=== PATIENT | male | born 1975 | race African-American/Black ===

== ENCOUNTER 2018-05-09 11:41 | Inpatient (IN) ==
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
[2018-05-09 13:11] LABS: Baso % (Auto) 0.7 % (0.0-2.0); Eos # (Auto) 0.3 th/mm3 (0.0-0.4); Eos % (Auto) 4.8 % (0.0-4.0); Hematocrit 43.3 % (39.0-51.0); Hemoglobin 14.3 gm/dL (13.0-17.0); Lymph # (Auto) 2.2 th/mm3 (1.0-4.8); Lymph % (Auto) 39.3 % (9.0-44.0); Mean Corpuscular HGB Conc 33.1 % (32.0-36.0); Mean Corpuscular Hemoglobin 31.5 pg (27.0-34.0); Mean Corpuscular Volume 95.2 fL (80.0-100.0); Mean Platelet Volume 8.1 fL (7.0-11.0); Mono # (Auto) 0.4 th/mm3 (0.0-0.9); Mono % (Auto) 6.9 % (0.0-8.0); Neut # (Auto) 2.6 th/mm3 (1.8-7.7); Neut % (Auto) 48.3 % (16.0-70.0); Platelet Count 275 th/mm3 (150-450); Red Blood Count 4.54 mil/mm3 (4.50-5.90); Red Cell Distribution Width 12.5 % (11.6-17.2); White Blood Count 5.5 th/mm3 (4.0-11.0)
[2018-05-09 13:16] LABS: Anion Gap 4 meq/L (5-15); Blood Urea Nitrogen 6 mg/dL (7-18); Calcium 8.9 mg/dL (8.5-10.1); Carbon Dioxide 31.1 meq/L (21.0-32.0); Chloride 106 meq/L (98-107); Glomerular Filtration Rate Greater Than 89 mL/min (>89); Glucose,Random 87 mg/dL (74-106); Potassium 3.9 meq/L (3.5-5.1); Sodium 141 meq/L (136-145)
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
[2018-05-09] MEDS ORDERED: Bisacodyl 10 MG Supp RECTAL PRN (14:29)
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
[2018-05-09 15:09] LABS: Activated Partial Thrombo Time 27.5 sec (23.4-31.7)
[2018-05-09 15:11] LABS: Prothrombin Time 10.1 sec (9.8-11.6)
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
--- NOTE | 2018-05-09 16:58 | MR ---
EXAM DATE: 05/09/2018 4:45 PM EST AGE/SEX: 43 years / Male INDICATIONS: . Assess vertebral arteries, possible cervical fracture. CLINICAL DATA: This is the patient's initial encounter. Patient reports that signs and symptoms have been present for 2 months and indicates a pain score of 3/10. MEDICAL/SURGICAL HISTORY: None. . Left hand sx. COMPARISON: C, CTA NECK W CONTRAST W 3D, 03/31/2018. . TECHNIQUE: 3D time-of- flight MRA of the extracranial circulation was performed using a neuro6sicuro.itcul ar coil. Post processing was performed including rotating sub-volume maximum intensity projections o f each carotid artery, rotating full-volume maximum intensity projections of both carotid arteries, s agittal and coronal sliding thin-slab reformations of each carotid artery, and left oblique sliding t hin-slab reformation through the aortic arch to include the origin of the arch branch vessels. FINDINGS: Aortic Arch : There is a three-vessel origin of the great vessels from the aorta. No evidence of o stial narrowing. Right Carotid : The common carotid artery is intact. The carotid bulb has a normal configuration wi thout ulceration or narrowing. The internal carotid artery lumen is smooth without stenosis. The ex ternal carotid artery is intact. Left Carotid : The common carotid artery is intact. The carotid bulb has a normal configuration wit hout ulceration or narrowing. The internal carotid artery lumen is smooth without stenosis. The ext ernal carotid artery is intact. Vertebrals : As on the prior CTA examination, the left vertebral artery is not visualized, presumed occluded throughout. The right vertebral is a widely patent normal caliber normal-appearing vessel CONCLUSION: Left vertebral is occluded. Percent stenosis is calculated using the diameter of the stenotic region over the diameter of the nor mal distal internal carotid artery Electronically signed by: Matthew Torres MD Board Certified Radiologist 05/09/2018 4:57 PM EST
[2018-05-09] MEDS ORDERED: Chlorhexidine 4% Topical 120 APPLIC/120 ML Bottle TOPICAL ONE (20:00)
[2018-05-09] MEDS: Famotidine PF Inj 20 MG/2 ML Vial IV.PUSH SCH (20:20)
[2018-05-09] MEDS: Senna/Docusate Sodium 8.6/50 MG Tablet PO SCH (20:20)
[2018-05-10] MEDS ORDERED: Chlorhexidine Gluconate 2% 1 Pack (2 Cloths) TOPICAL PRN (04:00)
[2018-05-10 04:24] LABS: Anion Gap 8 meq/L (5-15); Blood Urea Nitrogen 8 mg/dL (7-18); Calcium 8.4 mg/dL (8.5-10.1); Carbon Dioxide 26.9 meq/L (21.0-32.0); Chloride 109 meq/L (98-107); Glomerular Filtration Rate Greater Than 89 mL/min (>89); Glucose,Random 95 mg/dL (74-106); Potassium 3.6 meq/L (3.5-5.1); Sodium 144 meq/L (136-145)
[2018-05-10] MEDS: Sod Chloride 0.9% Inj 1,000 ML IV.CONT SCH ×3 (06:25→18:23)
[2018-05-10] MEDS: Chlorhexidine Gluconate 2% 1 Pack (2 Cloths) TOPICAL SCH (06:25)
[2018-05-10] MEDS: Famotidine PF Inj 20 MG/2 ML Vial IV.PUSH SCH ×2 (08:24→20:40)
[2018-05-10] MEDS: Senna/Docusate Sodium 8.6/50 MG Tablet PO SCH ×2 (09:35→20:41)
[2018-05-10] MEDS ORDERED: Thrombin Topical Soln 5,000 UNIT Vial TOPICAL ONE (10:12)
[2018-05-10] MEDS ORDERED: Lidocaine 1%/Epinephrine 1:100,000 Inj 50 ML Vial ONE (10:12)
[2018-05-10] MEDS ORDERED: Gelatin Size 100 Topical Foam ONE (10:12)
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
[2018-05-10] MEDS ORDERED: Propofol Inj 500 MG/50 ML Vial ONE ×2 (10:38→13:18)
[2018-05-10] MEDS ORDERED: Normosol-R pH 7.4 Inj 2,000 ML IV.CONT ONE (10:51)
[2018-05-10] MEDS ORDERED: Succinylcholine Inj 100 MG/5 ML Syringe IV.PUSH ONE (10:51)
[2018-05-10] MEDS ORDERED: Sodium Chlor 0.9% Inj 250 ML IV.CONT ONE (10:51)
[2018-05-10] MEDS ORDERED: Neostigmine Inj 5 MG/5 ML Syringe IV.PUSH ONE (10:51)
[2018-05-10] MEDS ORDERED: Glycopyrrolate Inj 1 MG/5 ML Syringe IV.PUSH ONE (10:51)
[2018-05-10] MEDS ORDERED: Phenylephrine/NS 1000 MCG/10ML Syringe IV.PUSH ONE (10:51)
[2018-05-10] MEDS ORDERED: Lidocaine PF 1% Inj 5 ML Syringe OTHER ONE (10:51)
[2018-05-10] MEDS ORDERED: fentaNYL Citrate Inj 100 MCG/2 ML Ampul ONE (13:17)
[2018-05-10] MEDS ORDERED: Empty Container, Bottle 1 EACH, Sod Chloride 0.9% Inj 1,000 ML, Bacitracin Inj 50,000 UNIT IRRIGATION ONE ×3 (14:21)
[2018-05-10] MEDS ORDERED: ceFAZolin Inj 2 GM in Sodium Chlor 0.9% Inj 100 ML IV.SIG ONE (15:35)
--- NOTE | 2018-05-10 15:45 | XR ---
EXAM DATE: 05/10/2018 3:33 PM EST AGE/SEX: 43 years / Male INDICATIONS: C3-T1 Posterior Fusion. CLINICAL DATA: This is the patient's subsequent encounter. Patient reports that signs and symptoms h ave been present for 2 days and indicates a pain score of Nonresponsive. MEDICAL/SURGICAL HISTORY: Non-responsive. . C3-T1 Posterior Fusion. COMPARISON: No prior exams available for comparison. FINDINGS: Intraoperative OEC spot images show bilateral transpedicular fixation at 4 levels on the right and 3 levels on the left beginning at C3 and extending inferiorly. Hardware all appears to be intact. CONCLUSION: Bilateral transpedicular fixation of the cervical spine with 4 levels on the right and 3 levels on th e left beginning at C3 and extending inferiorly. Electronically signed by: Isaac Yeh MD Board Certified Radiologist 05/10/2018 3:44 PM EST
--- NOTE | 2018-05-10 16:12 | P.PCN ---
Date of procedure: 05/10/18 Pre-op diagnosis: left C4/5 jumped/perched facet with unstable fracture. Post-op diagnosis: same Procedure: C3/4,C4/5,C5/6 posterior cervical fusion with spinal instrumentation Microscope Neuro-monitoring [place] head sawyer automatic Anesthesia: GETA Surgeon: Taco Payan Estimated blood loss (mL): 100 Pathology: none sent Condition: stable Disposition: PACU (Extubated, awake, alert, following commands, moving all 4 extremities well. No change from his pre-operative state.)
[2018-05-10] MEDS ORDERED: *morphine SULFATE 4 MG/ML PERIprocedure ONLY ONE ×3 (16:53→17:42)
[2018-05-10 17:09] LABS: Baso % (Auto) 0.1 % (0.0-2.0); Eos % (Auto) 0.1 % (0.0-4.0); Hematocrit 38.2 % (39.0-51.0); Hemoglobin 12.8 gm/dL (13.0-17.0); Lymph # (Auto) 0.6 th/mm3 (1.0-4.8); Lymph % (Auto) 6.3 % (9.0-44.0); Mean Corpuscular HGB Conc 33.6 % (32.0-36.0); Mean Corpuscular Hemoglobin 31.5 pg (27.0-34.0); Mean Corpuscular Volume 93.6 fL (80.0-100.0); Mean Platelet Volume 7.5 fL (7.0-11.0); Mono # (Auto) 0.1 th/mm3 (0.0-0.9); Mono % (Auto) 0.5 % (0.0-8.0); Neut # (Auto) 9.1 th/mm3 (1.8-7.7); Platelet Count 251 th/mm3 (150-450); Red Blood Count 4.08 mil/mm3 (4.50-5.90); Red Cell Distribution Width 12.5 % (11.6-17.2); White Blood Count 9.8 th/mm3 (4.0-11.0)
[2018-05-10 17:52] LABS: Calcium 7.6 mg/dL (8.5-10.1); Carbon Dioxide 24.9 meq/L (21.0-32.0); Potassium 3.5 meq/L (3.5-5.1)
--- NOTE | 2018-05-10 18:47 | CT ---
EXAM DATE: 05/10/2018 6:31 PM EST AGE/SEX: 43 years / Male INDICATIONS: Post-op follow up. CLINICAL DATA: This is the patient's initial encounter. Patient reports that signs and symptoms have been present for 1 day and indicates a pain score of 7/10. MEDICAL/SURGICAL HISTORY: None. . C4/c5 fracture. Cervical surgery. RADIATION DOSE: 42.99 CTDI (mGy) COMPARISON: [facility] [place], CT CERVICAL SPINE W/O CONTRAST, 05/09/2018. . TECHNIQUE: Contiguous axial images were obtained using helical multirow detector technique. The vol umetric data was post-processed with multiplanar reconstruction in oblique axial, sagittal, and coron al planes. Using automated exposure control and adjustment of the mA and/or kV according to patient s ize, radiation dose was kept as low as reasonably achievable to obtain optimal diagnostic quality joseph ges. DICOM format image data is available electronically for review and comparison. FINDINGS: Vertebrae: Postsurgical changes with posterior fusion with rods and screws posteriorly C3-C6. Facets are well aligned. There is some slight widening of the anterior disc space at C4-5. There does appea r to be some hemorrhage within the spinal canal at C3, C4 and C5 levels. Surgical drain seen posterio rly. Alignment: Alignment near anatomic and significantly improved status post reduction/surgical changes . C2-3: The bony spinal canal is normal in size. No evidence of disc bulge or herniation. The neural foramina are bilaterally patent. C3-4: The bony spinal canal is normal in size. No evidence of disc bulge or herniation. The neural foramina are bilaterally patent. C4-5: The bony spinal canal is normal in size. No evidence of disc bulge or herniation. The neural foramina are bilaterally patent. C5-6: The bony spinal canal is normal in size. No evidence of disc bulge or herniation. The neural foramina are bilaterally patent. C6-7: The bony spinal canal is normal in size. No evidence of disc bulge or herniation. The neural foramina are bilaterally patent. C7-T1: The bony spinal canal is normal in size. No evidence of disc bulge or herniation. The neura l foramina are bilaterally patent. CONCLUSION: 1. Postsurgical changes with posterior fusion C3-C6. 2. Alignment is near anatomic. 3. There does appear to be some hemorrhage within the thecal sac at multiple levels as above. Electronically signed by: Michael Macias MD Board Certified Radiologist 05/10/2018 6:45 PM EST
[2018-05-10] MEDS: Morphine Sulfate Inj 2 MG/ML Vial IV.PUSH PRN ×3 (19:03→23:02)
--- NOTE | 2018-05-10 21:33 | ECG ---
Date Performed: 05/10/2018 Time Performed: 04:53:40 PTAGE: 43 years EKG: Sinus bradycardia. Normal ECG except for rate NO PREVIOUS TRACING DOCTOR: Julius Rocha Interpretating Date/Time 05/10/2018 21:32:46
[2018-05-10] MEDS: ceFAZolin Inj 1 GM in Sodium Chlor 0.9% Inj 100 ML IV.SIG SCH (23:04)
[2018-05-11] MEDS: Morphine Sulfate Inj 2 MG/ML Vial IV.PUSH PRN ×4 (03:30→14:43)
[2018-05-11] MEDS: Sod Chloride 0.9% Inj 1,000 ML IV.CONT SCH ×3 (05:35→23:41)
[2018-05-11] MEDS: Chlorhexidine Gluconate 2% 1 Pack (2 Cloths) TOPICAL SCH (05:36)
[2018-05-11 06:11] LABS: Baso % (Auto) 0.1 % (0.0-2.0); Hematocrit 37.7 % (39.0-51.0); Hemoglobin 12.8 gm/dL (13.0-17.0); Lymph # (Auto) 1.1 th/mm3 (1.0-4.8); Lymph % (Auto) 10.8 % (9.0-44.0); Mean Corpuscular Hemoglobin 31.5 pg (27.0-34.0); Mean Corpuscular Volume 92.5 fL (80.0-100.0); Mean Platelet Volume 8.1 fL (7.0-11.0); Mono # (Auto) 0.5 th/mm3 (0.0-0.9); Mono % (Auto) 4.3 % (0.0-8.0); Neut # (Auto) 8.9 th/mm3 (1.8-7.7); Neut % (Auto) 84.8 % (16.0-70.0); Platelet Count 263 th/mm3 (150-450); Red Blood Count 4.08 mil/mm3 (4.50-5.90); Red Cell Distribution Width 12.3 % (11.6-17.2); White Blood Count 10.5 th/mm3 (4.0-11.0)
[2018-05-11 06:51] LABS: Anion Gap 7 meq/L (5-15); Blood Urea Nitrogen 6 mg/dL (7-18); Calcium 8.6 mg/dL (8.5-10.1); Carbon Dioxide 27.6 meq/L (21.0-32.0); Chloride 105 meq/L (98-107); Glomerular Filtration Rate Greater Than 89 mL/min (>89); Glucose,Random 118 mg/dL (74-106); Potassium 4.2 meq/L (3.5-5.1); Sodium 140 meq/L (136-145)
[2018-05-11] MEDS: ceFAZolin Inj 1 GM in Sodium Chlor 0.9% Inj 100 ML IV.SIG SCH ×2 (09:41→15:07)
[2018-05-11] MEDS: Senna/Docusate Sodium 8.6/50 MG Tablet PO SCH ×2 (09:42→20:28)
[2018-05-11] MEDS: Famotidine PF Inj 20 MG/2 ML Vial IV.PUSH SCH ×2 (09:42→20:28)
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
[2018-05-11] MEDS: HYDROmorphone PF Inj 0.5 MG/0.5 ML Syringe IV.PUSH PRN ×3 (15:33→23:50)
[2018-05-12] MEDS: HYDROmorphone PF Inj 0.5 MG/0.5 ML Syringe IV.PUSH PRN ×4 (03:24→21:48)
[2018-05-12 03:41] LABS: Baso % (Auto) 0.3 % (0.0-2.0); Eos # (Auto) 0.1 th/mm3 (0.0-0.4); Eos % (Auto) 0.8 % (0.0-4.0); Hematocrit 33.6 % (39.0-51.0); Hemoglobin 11.4 gm/dL (13.0-17.0); Lymph # (Auto) 2.8 th/mm3 (1.0-4.8); Lymph % (Auto) 30.4 % (9.0-44.0); Mean Corpuscular HGB Conc 33.9 % (32.0-36.0); Mean Corpuscular Hemoglobin 32.1 pg (27.0-34.0); Mean Corpuscular Volume 94.7 fL (80.0-100.0); Mono # (Auto) 0.5 th/mm3 (0.0-0.9); Mono % (Auto) 5.6 % (0.0-8.0); Neut # (Auto) 5.8 th/mm3 (1.8-7.7); Neut % (Auto) 62.9 % (16.0-70.0); Platelet Count 221 th/mm3 (150-450); Red Blood Count 3.55 mil/mm3 (4.50-5.90); Red Cell Distribution Width 12.4 % (11.6-17.2); White Blood Count 9.2 th/mm3 (4.0-11.0)
[2018-05-12 04:02] LABS: Anion Gap 6 meq/L (5-15); Blood Urea Nitrogen 7 mg/dL (7-18); Calcium 7.4 mg/dL (8.5-10.1); Carbon Dioxide 30.4 meq/L (21.0-32.0); Chloride 107 meq/L (98-107); Glomerular Filtration Rate Greater Than 89 mL/min (>89); Glucose,Random 117 mg/dL (74-106); Potassium 3.5 meq/L (3.5-5.1); Sodium 143 meq/L (136-145)
[2018-05-12] MEDS: Chlorhexidine Gluconate 2% 1 Pack (2 Cloths) TOPICAL SCH (04:02)
[2018-05-12 04:09] LABS: Calcium-Albumin Corrected 8.2 mg/dL (8.5-10.1)
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
[2018-05-12] MEDS: Senna/Docusate Sodium 8.6/50 MG Tablet PO SCH ×2 (10:06→21:47)
[2018-05-12] MEDS: Famotidine PF Inj 20 MG/2 ML Vial IV.PUSH SCH ×2 (10:06→21:47)
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
[2018-05-13] MEDS: HYDROmorphone PF Inj 0.5 MG/0.5 ML Syringe IV.PUSH PRN ×5 (02:21→22:32)
[2018-05-13] MEDS: Chlorhexidine Gluconate 2% 1 Pack (2 Cloths) TOPICAL SCH (04:33)
[2018-05-13] MEDS: Famotidine PF Inj 20 MG/2 ML Vial IV.PUSH SCH ×2 (08:02→20:49)
[2018-05-13] MEDS: Senna/Docusate Sodium 8.6/50 MG Tablet PO SCH ×2 (08:03→20:49)
[2018-05-13 09:43] LABS: Baso % (Auto) 0.4 % (0.0-2.0); Eos # (Auto) 0.2 th/mm3 (0.0-0.4); Eos % (Auto) 2.3 % (0.0-4.0); Hematocrit 37.6 % (39.0-51.0); Hemoglobin 12.5 gm/dL (13.0-17.0); Lymph # (Auto) 2.8 th/mm3 (1.0-4.8); Mean Corpuscular HGB Conc 33.2 % (32.0-36.0); Mean Corpuscular Hemoglobin 31.2 pg (27.0-34.0); Mean Corpuscular Volume 94.1 fL (80.0-100.0); Mean Platelet Volume 7.9 fL (7.0-11.0); Mono # (Auto) 0.7 th/mm3 (0.0-0.9); Mono % (Auto) 7.2 % (0.0-8.0); Neut # (Auto) 5.6 th/mm3 (1.8-7.7); Neut % (Auto) 60.1 % (16.0-70.0); Platelet Count 233 th/mm3 (150-450); Red Cell Distribution Width 12.6 % (11.6-17.2); White Blood Count 9.3 th/mm3 (4.0-11.0)
[2018-05-13 10:06] LABS: Anion Gap 9 meq/L (5-15); Calcium 8.8 mg/dL (8.5-10.1); Carbon Dioxide 27.7 meq/L (21.0-32.0); Chloride 101 meq/L (98-107); Glomerular Filtration Rate Greater Than 89 mL/min (>89); Potassium 3.4 meq/L (3.5-5.1); Sodium 138 meq/L (136-145)
[2018-05-13 10:10] LABS: Blood Urea Nitrogen 6 mg/dL (7-18); Glucose,Random 85 mg/dL (74-106)
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
[2018-05-14] MEDS ORDERED: Acetaminophen 500 MG Tablet PO ONE (00:23)
[2018-05-14] MEDS: Chlorhexidine Gluconate 2% 1 Pack (2 Cloths) TOPICAL SCH (03:08)
[2018-05-14] MEDS: HYDROmorphone PF Inj 0.5 MG/0.5 ML Syringe IV.PUSH PRN ×4 (08:56→20:30)
[2018-05-14] MEDS: Famotidine PF Inj 20 MG/2 ML Vial IV.PUSH SCH ×2 (08:56→20:11)
[2018-05-14] MEDS: Senna/Docusate Sodium 8.6/50 MG Tablet PO SCH ×2 (11:52→20:09)
[2018-05-14] MEDS ORDERED: MethylPREDNISolone Sod Succinate Inj 125 MG/2 ML Vial IV.PUSH ONE (12:00)
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
[2018-05-14] MEDS ORDERED: Gadobutrol PF 10 MMOL/10 ML Vial (for RAD) IV.SIG ONE (19:06)
--- NOTE | 2018-05-14 19:42 | MR ---
EXAM DATE: 05/14/2018 7:28 PM EST AGE/SEX: 43 years / Male INDICATIONS: . Post surgical pain. CLINICAL DATA: This is the patient's initial encounter. Patient reports that signs and symptoms have been present for 4 - 6 days and indicates a pain score of 5/10. MEDICAL/SURGICAL HISTORY: None. Fusion, cervical. Left hand surgery. COMPARISON: [facility] – [place], MR CERVICAL SPINE W/O CONTRAST, 05/09/2018. . TECHNIQUE: Multiplanar, multisequence MRI examination of the cervical spine was performed without an d with 8 ml Gadavist (gadobutrol) contrast as a single exam dose. FINDINGS: ALIGNMENT: The traumatic anterolisthesis at the C4 level has been reduced. Vertebral bodies are now s atisfactorily aligned without evidence of listhesis. FACET AND OSSEOUS STRUCTURES: Postsurgical changes are identified following posterior fusion. The di slocated left-sided C4-5 facet has been reduced. Posterior parallel fusion rods are identified. There is a posterior suboccipital fluid collection along the posterior elements extending from the ba se of the skull to the C3 level. The collection does not extend into the spinal canal. Measures appro ximately 5 to 6 cm in length by 3 cm in width. INTERVERTEBRAL DISC SPACES: Disc space narrowing and mild signal alteration 7 C4-5 disc following tr auma. There is no significant disc herniation. Intervertebral disc spaces are otherwise well-maintained. NEUROLOGIC STRUCTURES: Localized spinal cord T2 hyperintensity remains evident at the C4-5 level. Spi nal cord superior and inferior to this area is otherwise unremarkable. There is no significant spinal cord expansion. CONCLUSION: 1. Posterior suboccipital postsurgical fluid collection extending from the base of the skull to C3. This is most characteristic of a postsurgical seroma or evolving hematoma. 2. Satisfactory reduction of traumatic listhesis and left-sided facet dislocation at C4-5. 3. Intramedullary T2 hyperintensity within the cervical spinal cord characteristic of traumatic inju ry and edema. No significant change is identified compared to the initial evaluation. 4. Otherwise stable bony and soft tissue structures. Electronically signed by: Jimbo Rebolledo MD Board Certified Radiologist 05/14/2018 7:41 PM EST
[2018-05-14 21:28] LABS: Bilirubin,Urine Negative (Negative); Clarity,Urine Clear (Clear); Color,Urine Yellow (Yellw/Straw); Glucose,Urine (UA) Negative (Negative); Leukocyte Esterase,Urine Negative (Negative); Mucus,Urine Few /lpf (Occasional); Nitrite,Urine Negative (Negative); Specific Gravity,Urine 1.016 (1.002-1.035)
[2018-05-15] MEDS: HYDROmorphone PF Inj 0.5 MG/0.5 ML Syringe IV.PUSH PRN ×3 (00:33→15:20)
[2018-05-15 06:18] LABS: Hematocrit 33.6 % (39.0-51.0); Hemoglobin 11.1 gm/dL (13.0-17.0); Mean Corpuscular Hemoglobin 30.5 pg (27.0-34.0); Mean Corpuscular Volume 92.6 fL (80.0-100.0); Mean Platelet Volume 8.1 fL (7.0-11.0); Platelet Count 272 th/mm3 (150-450); Red Blood Count 3.62 mil/mm3 (4.50-5.90); Red Cell Distribution Width 12.5 % (11.6-17.2)
[2018-05-15 06:48] LABS: Anion Gap 10 meq/L (5-15); Blood Urea Nitrogen 12 mg/dL (7-18); Calcium 9.1 mg/dL (8.5-10.1); Carbon Dioxide 29.3 meq/L (21.0-32.0); Chloride 100 meq/L (98-107); Glomerular Filtration Rate Greater Than 89 mL/min (>89); Glucose,Random 118 mg/dL (74-106); Potassium 3.7 meq/L (3.5-5.1); Sodium 139 meq/L (136-145)
[2018-05-15 09:03] LABS: Creatine Kinase 173 U/L (39-308)
[2018-05-15] MEDS: Senna/Docusate Sodium 8.6/50 MG Tablet PO SCH (09:18)
[2018-05-15] MEDS: Famotidine PF Inj 20 MG/2 ML Vial IV.PUSH SCH (09:19)
[2018-05-15 09:54] VITALS: RESP 20
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
[2018-05-15] MEDS ORDERED: Magnesium Citrate Liq 300 ML Bottle PO ONE (12:00)
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
[2018-05-15 15:34] VITALS: BP 125/76; PULSE 79; TEMP 98; O2SAT 97
== END 2018-05-15 16:00 | disposition home or self-care (01) | DRG 473 ==
LOC: NEPD 11:41 → NEDA 14:11 → NEDH 19:47 → N03 19:52 → N04 05-12 18:56
PROVIDERS: ADMIT Internal Medicine; ATTEND Internal Medicine
CPT/HCPCS: 70547; 71010; 71045; 72040; 72125; 72141; 72156; 73110; 76000; 76937; 80048; 81001; 82040; 82550; 85025; 85027; 85610; 85730; 86850; 86900; 86901; 86923; 87641; 93005; 94150; 97110; 97162; 97167; 97535; 99285; A9585; C1713; J0131; J0330; J0690; J1100; J1170; J2250; J2270; J2370; J2405; J2704; J2710; J2930; J3010; J7030; J7050; L3825; L3908